=== PATIENT | female | born 1950 | race Two or more races ===

== ENCOUNTER 2021-06-20 07:46 | Day surgery (SDC) | payer OTHER, MEDICAID ==
[~2021-06-20] VITALS: Ht 167.6 cm; Wt 90.7 kg
[~2021-06-20 07:46] MED LIST: METO25TA5 PO
[2021-06-20] MEDS ORDERED: PHENYLEPHRINE HCL 10 MG/ML VL IV ONE (07:47)
[2021-06-20] MEDS ORDERED: ceFAZolin 1GM/50ML 100 ML IV ONE (08:00)
[2021-06-20] MEDS ORDERED: fentaNYL CITRATE 100 MCG/2 ML VL ONE (08:38)
[2021-06-20] MEDS ORDERED: MEPERIDINE HCL (50 MG/ML) 1 ML VIAL ONE (08:38)
[2021-06-20] MEDS ORDERED: MIDAZOLAM HCL 2MG/2ML 2ml VIAL (1mg/ml) ONE (08:38)
[2021-06-20] MEDS ORDERED: PROPOFOL 10 MG/ML 20 ML IV ONE (08:48)
[2021-06-20] MEDS ORDERED: DexAMETHasone SOD PHOS 10MG/1ML VIAL INJ ONE (08:48)
[2021-06-20] MEDS ORDERED: MIDAZOLAM HCL 2MG/2ML 2ml VIAL (1mg/ml) IV PRN (09:45)
[2021-06-20] MEDS ORDERED: MORPHINE SULFATE 4 MG/ML SYR/VIAL IV PRN (09:45)
[2021-06-20] MEDS ORDERED: ePHEDrine SULFATE 50 MG/ML AMP IV PRN (09:45)
[2021-06-20] MEDS ORDERED: LABETALOL HCL 5 MG/ML 4ML SYRINGE IV PRN (09:45)
[2021-06-20] MEDS ORDERED: ONDANSETRON HCL 4 MG/2 ML VIAL IV PRN (09:45)
[2021-06-20] MEDS ORDERED: BUPIVACAINE HCL 50 ML ONE (09:52)
[2021-06-20] MEDS ORDERED: EPINEPHrine HCL 1 MG/1 ML AMP ONE (09:52)
[2021-06-20] MEDS ORDERED: ONDANSETRON HCL 4 MG/2 ML VIAL ONE (10:18)
[2021-06-20] MEDS: HYDROmorphone HCL 2 MG/ML VL/or syr IV PRN ×3 (11:20→11:43)
[2021-06-20 12:00] VITALS: BP 127/67
== END 2021-06-20 12:24 | disposition home or self-care (01) ==
LOC: SUR 07:46
PROVIDERS: ATTEND Orthopaedic Surgery Sports Medicine
DX: S83.242A Other tear of medial meniscus, current injury, left knee, initial encounter (principal); M94.262 Chondromalacia, left knee; I10 Essential (primary) hypertension; I25.10 Atherosclerotic heart disease of native coronary artery without angina pectoris; G89.29 Other chronic pain; M19.90 Unspecified osteoarthritis, unspecified site; Z20.822 Contact with and (suspected) exposure to COVID-19; Z98.890 Other specified postprocedural states; Z79.899 Other long term (current) drug therapy; Z79.82 Long term (current) use of aspirin; X58.XXXA Exposure to other specified factors, initial encounter; Y92.89 Other specified places as the place of occurrence of the external cause; Y93.89 Activity, other specified; Y99.8 Other external cause status
CPT/HCPCS: 29881; J0171; J0690; J1100; J1170; J2175; J2250; J2370; J2405; J2704; J3010; J3490; U0003